=== PATIENT | female | born 1940 | race Caucasian/White ===

== ENCOUNTER 2017-01-25 09:15 | Outpatient (CLI) | payer MEDICARE ==
--- NOTE | 2017-01-25 14:35 | CT ---
CT OF ABDOMEN AND PELVIS: DATE: 01/25/17. COMPARISON: 01/23/16. HISTORY: [place], carcinoid tumor. TECHNIQUE: Serial axial CT imaging at 5 mm intervals from the lung bases through the pubic symphysis with IV and oral contrast. Coronal reformatted imaging obtained. FINDINGS: Incompletely imaged transvenous pacing device present. Imaged lung bases are unremarkable. No free intraperitoneal air or fluid. No focal liver lesion identified. Peripheral contour of the hepatic parenchyma is mildly irregular, a stable finding. The spleen, pancreas, and adrenal glands are unremarkable. Numerous small gallstones are again seen. The kidneys are unremarkable. The uterus is nonvisualized There is a soft tissue mass with internal calcifications within the right hemipelvis best seen on cor onal image 89 and axial image 61 measuring approximately 2.4 cm transverse, x 2.8 cm AP x 3.2 cm cran iocaudal, similar in size when compared to the prior exam. There is a similar soft tissue structure within the left hemipelvis best seen on axial image 66 and coronal image 77 measuring 2.0 cm AP x 3.1 cm transverse x 2.0 cm craniocaudal grossly unchanged as well. There are mesenteric masses anterior ly located within the lower pelvis anterior to the urinary bladder. Two such lesions are noted, the largest measuring 1.8 cm in transverse dimension, stable. There is diverticulosis of the sigmoid colon and descending colon with no evidence for diverticulitis . There is a mesenteric mass in the right lower quadrant with irregular margins and internal calcificat ion, best seen on axial image 55 and coronal image 73, measuring 1.6 cm AP x 1.9 cm transverse x 2.4 cm craniocaudal, not significantly changed. No evidence for bowel obstruction. There is no lymphadenopathy identified within the abdomen or pelvis. The vascular structures of the abdomen/pelvis demonstrate scattered atherosclerotic disease. Osseous structures demonstrate the lower lumbar spine degenerative change involving the intervertebral disks and facet joints. IMPRESSION: 1. Multiple mesenteric masses in the right lower quadrant and pelvis, not significantly changed when compared to the 2016 exam. No new masses are evident. 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 2. Additional incidental findings as detailed above, stable. POS: [facility]
== END 2017-01-25 09:16 | disposition home or self-care (01) ==
LOC: CT 09:15
PROVIDERS: ATTEND Internal Medicine Hematology & Oncology
DX: C7A.012 Malignant carcinoid tumor of the ileum (principal); R19.03 Right lower quadrant abdominal swelling, mass and lump
CPT/HCPCS: 74177

== ENCOUNTER 2018-01-25 09:10 | Outpatient (CLI) | payer MEDICARE ==
[2018-01-25] MEDS ORDERED: Iopamidol 370 76% 100 ML VIAL ONE (10:05)
--- NOTE | 2018-01-25 11:13 | CT ---
CT ABDOMEN AND PELVIS WITH CONTRAST: HISTORY: Carcinoid tumor of the ilium. COMPARISON: 01/25/2017 TECHNIQUE: Multiple contiguous axial images were obtained in a CT of the abdomen and pelvis with contrast. Cont rast was administered p.o. Coronal reformats were performed. FINDINGS: Gallstones are seen in the gallbladder. The liver is slightly nodular in appearance, which may be se condary to cirrhosis. The kidneys, adrenal glands, spleen, and pancreas are unremarkable. There are scattered diverticula in the colon. The small bowel is normal in caliber. There are soft tissue density masses in the lower abdomen. The masses in the right lower quadrant of the abdomen, a djacent to the cecum, contain calcifications. These are stable in size. The larger of the masses me asure 2.6 cm in greatest dimension. There is a mass just to the left of midline, in the lower abdome n/pelvis, which is stable in size, measuring 3.2 cm in greatest dimension and 2 cm in width. Two sof t tissue density masses are seen more anteriorly, in the lower abdomen/pelvis. These are also stable in size. Degenerative changes are seen in the spine without suspicious osseous lesions identified. The abdomi nal wall soft tissues and the visualized inferior thorax are unremarkable. IMPRESSION: 1. Stable soft tissue masses in the right lower quadrant of the abdomen and in the pelvis. This may represent residual disease. 2. Diverticulosis. 3. Cholelithiasis. 4. Possible cirrhosis of the liver. POS: [facility]
== END 2018-01-25 09:11 | disposition home or self-care (01) ==
LOC: CT 09:10
PROVIDERS: ATTEND Internal Medicine Hematology & Oncology
DX: C7A.012 Malignant carcinoid tumor of the ileum (principal); K80.20 Calculus of gallbladder without cholecystitis without obstruction; K57.30 Diverticulosis of large intestine without perforation or abscess without bleeding; R19.03 Right lower quadrant abdominal swelling, mass and lump
CPT/HCPCS: 74177; 82565

== ENCOUNTER 2019-03-10 10:09 | Outpatient (CLI) | payer MEDICARE ==
[2019-03-10] MEDS ORDERED: Iopamidol-370 76% 500 ML 1 ML ONE (10:40)
--- NOTE | 2019-03-10 11:43 | CT ---
EXAM: CT ABDOMEN AND PELVIS: HISTORY: Tumor of the ileum. Appendectomy. Hysterectomy. COMPARISON: 01/25/2018. Procedure: Multiple contiguous axial images were obtained and a CT of the abdomen and pelvis with IV contrast. C oronal reformats were performed. FINDINGS: Lower Chest: within normal limits. Vessels: Atherosclerosis of a nonaneurysmal aorta. Heart: Normal heart size. No significant pericardial fluid. Abdomen: Portal vein:Patent. Gallbladder: Multiple gallstones. No CT evidence of cholecystitis. Liver: No enhancing masses. Stable nodularity of the hepatic margin. Pancreas: within normal limits. Spleen: within normal limits. Adrenals: within normal limits. Kidneys: Symmetric enhancement. No obstructive uropathy. Peritoneum: No ascites or free air, no fluid collection. Bowel: Gastric mucosa, duodenum and multiple normal caliber small bowel loops. Ileocecal junction dora ears to be unremarkable. Scattered fecal material and contrast in a nondistended, nondilated colon. Mesentery and Retroperitoneum: Redemonstration of a calcified mass in the right lower quadrant mesent renetta measuring 1.4 x 1.8 cm. Previously, this calcified mass measured 1.6 x 1.7 cm. Redemonstration of a soft tissue mass in the anterior lower abdominal mesentery, currently measuring 1.5 x 1.1 cm. Pr eviously, this mass measured 1.7 x 1.0 cm. There is also a soft tissue mass in the left hemipelvis, currently measuring 2.6 x 2.1 cm.. Previously, this mass measured 3.3 x 2.2 cm. Abdominal Wall: within normal limits. Pelvis: Reproductive Organs: Uterus is surgically absent. Pelvis: No mass, lymphadenopathy, free air or free fluid. Bladder: within normal limits. Bones: within normal limits. IMPRESSION: 1. Redemonstration of essentially stable soft tissue masses in the mesentery. The soft tissue mass in the right lower quadrant has persistent calcifications. Though there is a report of a tumor in the terminal ileum, an obvious intraluminal mass is not appreciated. The ileocecal junction appears to be normal. 2. Cholelithiasis without evidence of cholecystitis. 3. Mild nodularity of the liver, compatible with cirrhosis. Transcribed Date/Time: 03/10/2019 11:51 AM
== END 2019-03-10 10:10 | disposition home or self-care (01) ==
LOC: BICCT 10:09
PROVIDERS: ATTEND Internal Medicine Hematology & Oncology
DX: C7A.012 Malignant carcinoid tumor of the ileum (principal); K80.20 Calculus of gallbladder without cholecystitis without obstruction; K66.8 Other specified disorders of peritoneum; R19.03 Right lower quadrant abdominal swelling, mass and lump; K76.89 Other specified diseases of liver
CPT/HCPCS: 74177; 82565; Q9967

== ENCOUNTER 2020-03-11 08:27 | Outpatient (CLI) | payer MEDICARE ==
--- NOTE | 2020-03-11 09:46 | CT ---
EXAM: CT ABDOMEN AND PELVIS HISTORY: Carcinoid tumor. Carcinoid of the ileum. COMPARISON: 03/10/2019 Procedure: Multiple contiguous axial images were obtained and a CT of the abdomen and pelvis with IV contrast. C oronal reformats were performed. FINDINGS: Lower Chest: within normal limits. Vessels: Atherosclerosis. No aneurysm or dissection. No periaortic fat stranding Heart: Normal heart size. No significant pericardial fluid Abdomen: Portal vein:Patent Gallbladder: Sludge and gallstones. No CT evidence of cholecystitis Liver: Nodularity suggesting a component of cirrhosis. Pancreas: Mild atrophy Spleen: within normal limits. Adrenals: within normal limits. Kidneys: Symmetric enhancement. No obstructive uropathy. Stable subcentimeter hypodensity in the left renal cortex. Peritoneum: No ascites or free air, no fluid collection. Bowel: Gastric mucosa, duodenum and multiple normal caliber small bowel loops. No small bowel obstruc tion. Normal ileocecal junction. Contrast and fecal material in a nondistended, nondilated colon. There is diverticulosis, without evidence of diverticulitis. Mesentery and Retroperitoneum: Redemonstration of multiple soft tissue masses in the abdominal mesent renetta. There is a slightly enlarged soft tissue mass in the anterior left lower quadrant abdominal mesentery measuring 1.7 x 1.7 cm, previously measuring 1.5 x 1.1 cm. There is a calcified mass in the central abdominal mesentery measuring 1.7 x 1.9 cm, previously measuring 1.9 x 1.5 cm. There is a soft tissue mass with a punctate calcification in the right lower quadrant measuring 2.5 x 2.3 cm, pr eviously measuring 2.2 x 2.5 cm. There is a soft tissue mass adjacent to the sigmoid colon measuring 2.9 x 2.7 cm, previously measuring 2.1 x 2.6 cm. Abdominal Wall: Stable umbilical hernia containing mesenteric fat Pelvis: Reproductive Organs: Surgically absent uterus Pelvis: No mass, lymphadenopathy, free air or free fluid. Bladder: within normal limits. Bones: within normal limits. IMPRESSION: 1. Redemonstration of multiple soft tissue masses in the abdominal mesentery, some of which are calci fied. There is slight interval growth in all of the aforementioned masses. 2. Cirrhosis. 3. Cholelithiasis without evidence of cholecystitis. Transcribed Date/Time: 03/11/2020 10:07 AM
[2020-03-11] MEDS ORDERED: Iopamidol-370 76% 500 ML 1 ML ONE (12:07)
== END 2020-03-11 08:28 | disposition home or self-care (01) ==
LOC: BICCT 08:27
PROVIDERS: ATTEND Internal Medicine Hematology & Oncology
DX: C7A.012 Malignant carcinoid tumor of the ileum (principal); K80.20 Calculus of gallbladder without cholecystitis without obstruction; K74.60 Unspecified cirrhosis of liver; R19.09 Other intra-abdominal and pelvic swelling, mass and lump
CPT/HCPCS: 74177; 82565; Q9967